=== PATIENT | female | born 1995 | race Two or more races ===

== ENCOUNTER 2017-06-08 18:33 | Emergency (ER) | payer SELFPAY ==
[2017-06-08 18:42] VITALS: RESP 20
--- NOTE | 2017-06-08 19:13 | C.PDOC ---
History Of Present Illness 21 year old female who presents to the ER with a complaint of abdominal pain and dysuria that began today, associated with vaginal spotting that began yesterday. Patient states she is 8 weeks and LMP was April 10; denies fever, chills, nausea, or vomiting. Chief Complaint (Nursing): Abdominal Pain History Per: Patient History/Exam Limitations: no limitations Onset/Duration Of Symptoms: Hrs Current Symptoms Are (Timing): Still Present Location Of Pain/Discomfort: RLQ, LLQ Radiation Of Pain To:: None Quality Of Discomfort: Unable To Describe Associated Symptoms: Urinary Symptoms. denies: Fever, Chills, Nausea, Vomiting Exacerbating Factors: None Alleviating Factors: None Recent travel outside of the [place]: No Past Medical History Reviewed: Historical Data, Nursing Documentation, Vital Signs Vital Signs: Last Vital Signs Temp 98.2 F 06/08/17 21:30 Pulse 77 06/08/17 21:30 Resp 20 06/08/17 21:30 BP 92/62 L 06/08/17 21:30 Pulse Ox 99 06/09/17 05:05 - Medical History PMH: No Chronic Diseases Surgical History: No Surg Hx Family History: States: Unknown Family Hx - Social History Hx Tobacco Use: No Hx Alcohol Use: Yes Hx Substance Use: No - Immunization History Hx Tetanus Toxoid Vaccination: No Hx Influenza Vaccination: Yes (2016) Hx Pneumococcal Vaccination: No Review Of Systems Constitutional: Negative for: Fever, Chills Gastrointestinal: Positive for: Abdominal Pain. Negative for: Nausea, Vomiting Genitourinary: Positive for: Dysuria Physical Exam - Physical Exam Appears: Non-toxic, No Acute Distress Skin: Normal Color, Warm, Dry Head: Atraumatic, Normacephalic Oral Mucosa: Moist Chest: Symmetrical, No Tenderness Cardiovascular: Rhythm Regular, No Murmur Respiratory: Normal Breath Sounds, No Rales, No Rhonchi, No Wheezing Gastrointestinal/Abdominal: Soft, Tenderness (Bilateral lower quadrants and hypogastric ) Pelvic: Normal External Exam, No Vaginal Bleeding, Other (Cervix closed, tender to palpation) Neurological/Psych: Oriented x3, Normal Speech, Normal Cognition ED Course And Treatment - Laboratory Results Result Diagrams: 06/08/17 19:20 06/08/17 19:20 O2 Sat by Pulse Oximetry: 99 (Room air) Pulse Ox Interpretation: Normal - CT Scan/US Abdominal US Other Rad Studies (CT/US): Read By Radiologist, Radiology Report Reviewed CT/US Interpretation: EXAM: US Abdomen Limited, Appendix. CLINICAL HISTORY: 21 years old, female; Pain; Abdominal pain; Tenderness; Right lower quadrant ( rlq); ;. Additional info: Rt. Lower abd pain/ tenderness. TECHNIQUE: Real-time ultrasound of the right lower quadrant with image documentation. EXAM DATE/TIME: Exam ordered 06/08/2017 7:03 PM. COMPARISON: No relevant prior studies available. FINDINGS: Appendix: The appendix is not seen as a separate structure. Free fluid: No free fluid. IMPRESSION: The appendix is not seen as a separate structure. No fluid collections noted Transvaginal US Other Rad Studies (CT/US): Read By Radiologist, Radiology Report Reviewed CT/US Interpretation: EXAM: US , Transvaginal. CLINICAL HISTORY: 21 years old, female; Signs and symptoms; Lmp or gestational age (in weeks): [id number]; Other: Vaginal bleed; . TECHNIQUE: Real-time transvaginal obstetrical ultrasound of the maternal pelvis and a first trimester . with image documentation. Transvaginal imaging was used for better evaluation of the fetus and. adnexa. COMPARISON: No relevant prior studies available. FINDINGS: Gestation: The gestational sac measures 2.4 x 1 x 2.4 cm for a mean sac diameter of 1.9 cm for a. menstrual age of 6 weeks and 3 days. There is a pole the crown-rump length measurements. 0.62 cm for a menstrual age of 6 weeks and 3 days Cardiac activity is noted at a rate of 128 beats. per minute. There is a yolk sac. Placenta/amniotic fluid: Cannot be adequately evaluated due to the early gestational age. Uterus/cervix: Endovaginal examination was performed for better delineation of the uterus and. adnexa On transvaginal exam the uterus measures 10.6 x 5.7 x 6.6 cm. The cervix measures. approximately 3.1 cm in length. No myometrial mass. Ovaries: The right ovary measures 4.2 x 1.6 x 2.1 cm and contains subcentimeter follicles. Blood. flow seen in the right ovary on color Doppler examination. The left ovary measures 3.3 x 1.6 x 2.6. cm. Subcentimeter follicles are present. Blood flow is present within the left ovary color Doppler. examination. Free fluid: No free fluid. IMPRESSION: 1. Single live intrauterine with an estimated menstrual age of 6 weeks and 3 days plus or -. 0 weeks and 3 days. Expected date of confinement 01/29/2018. Transabd US Other Rad Studies (CT/US): Read By Radiologist, Radiology Report Reviewed CT/US Interpretation: EXAM: US First Trimester, Transabdominal. CLINICAL HISTORY: 21 years old, female; Signs and symptoms; Lmp or gestational age (in weeks): [id number]; Other: Vaginal bleed; . TECHNIQUE: Real- time transabdominal obstetrical ultrasound of the maternal pelvis and a first trimester. with image documentation. EXAM DATE/TIME: Exam ordered 7:03 PM. COMPARISON: No relevant prior studies available. FINDINGS: Gestation: The uterus measures 10.2 x 6.2 x 7.2 cm. There is an intrauterine gestational sac. Placenta/amniotic fluid: Cannot be adequately evaluated due to the early gestational age. Uterus/cervix: The cervix measures 2.69 cm. No myometrial mass. Ovaries: Unremarkable. No mass. Free fluid: No free fluid. IMPRESSION: 1. Single intrauterine gestational sac. Please see the report for the transvaginal ultrasound which was. done immediately after the transabdominal study for a complete description of findings. Progress Note: Blood work, urinalysis, abdominal US, and transvaginal US ordered. Disposition Counseled Patient/Family Regarding: Diagnosis - Disposition Referrals: [facility] [Outside] Disposition: HOME/ ROUTINE Disposition Time: 21:15 Condition: STABLE Prescriptions: Acetaminophen [Tylenol 325mg tab] 650 mg PO Q4 #20 tab Instructions: Abdominal Pain in (ED) - POA Present On Arrival: None - Clinical Impression Clinical Impression: Abdominal pain during - Scribe Statement The provider has reviewed the documentation as recorded by the Scribe Rno Patel All medical record entries made by the Scribe were at my direction and personally dictated by me. I have reviewed the chart and agree that the record accurately reflects my personal performance of the history, physical exam, medical decision making, and the department course for this patient. I have also personally directed, reviewed, and agree with the discharge instructions and disposition.
[2017-06-08 19:24] LABS: BASO % 0.5 % (0.0-2.0); EOS # 0.1 K/uL (0.0-0.7); EOS % 1.2 % (0.0-4.0); HEMOGLOBIN 12.1 g/dL (11.0-16.0); LYMPH % 38.4 % (20.0-40.0); MEAN CELL VOLUME 89.8 fL (81.0-99.0); MEAN CORPUSCULAR HEMOGLOBIN 29.7 pg (27.0-31.0); MEAN CORPUSCULAR HGB CONC 33.1 g/dL (33.0-37.0); MEAN PLATELET VOLUME 8.2 fL (7.2-11.7); MONO # 0.6 K/uL (0.0-0.8); MONO % 7.7 % (0.0-10.0); NEUT % 52.2 % (50.0-75.0); NRBC % 0.1 % (0.0-2.0); RBC 4.06 Mil/uL (3.80-5.20); RED CELL DISTRIBUTION WIDTH 13.2 % (11.5-14.5); WHITE BLOOD COUNT 7.7 K/uL (4.8-10.8)
[2017-06-08 19:28] LABS: SQUAMOUS EPITHIAL 2 /hpf (0-5); URINE BILIRUBIN NEGATIVE (NEGATIVE); URINE BLOOD NEGATIVE (NEGATIVE); URINE CLARITY Clear (Clear); URINE COLOR Colorless (YELLOW); URINE GLUCOSE (UA) NORMAL (Normal); URINE LEUKOCYTE ESTERASE NEG Leu/uL (Negative); URINE NITRATE NEGATIVE (NEGATIVE); URINE PROTEIN NEGATIVE (NEGATIVE); URINE UROBILINOGEN NORMAL mg/dL (0.2-1.0)
[2017-06-08 19:32] LABS: ALBUMIN 3.6 g/dL (3.5-5.0)
[2017-06-08 19:35] LABS: ALB/GLOB RATIO 1.3 (1.0-2.1); ALT/SGPT 28 U/L (9-52); AST/SGOT 19 U/L (14-36); BLOOD UREA NITROGEN 7 mg/dL (7-17); CALCIUM 8.4 mg/dl (8.6-10.4); GFR AFRICAN-AMERICAN > 60; GFR NON-AFRICAN AMERICAN > 60; INR 1.2; PROTHROMBIN TIME 13.1 SECONDS (9.7-12.2)
[2017-06-08] MEDS ORDERED: Potassium Chloride 20 mEq/15 ml LIQ UD PO STA (20:47)
[2017-06-08] MEDS ORDERED: Potassium Chloride 20 mEq/15 ml LIQ UD ONE (21:04)
[2017-06-08 21:30] VITALS: TEMP 98.2
[2017-06-08 21:32] VITALS: BP 92/62; PULSE 77
[2017-06-09 05:06] VITALS: O2SAT 99
--- NOTE | 2017-06-09 16:50 | US ---
Right lower quadrant ultrasound dated 06/08/2017. History: Right lower quadrant abdominal pain/tenderness. Targeted sonographic evaluation right lower quadrant performed. Findings: The appendix is not seen with certainty on this study and therefore the possibility of an acute appendicitis cannot be excluded. Clinical correlation recommended. There are no obvious large right lower quadrant masses, collections or free fluid seen. Impression: The appendix is not visualized and therefore the possibility of an acute appendicitis cannot be excluded. No obvious fluid collections.
--- NOTE | 2017-06-09 16:55 | US ---
Pelvic ultrasound dated 06/08/2017. History: Vaginal bleeding in a patient. Transabdominal/transvaginal sonographic evaluation of the pelvis performed. Findings: The uterus is anteverted measuring approximately 10.6 x 5.7 x 6.6 cm. Cervix is closed measuring approximately 2.89 cm. . There is a single living intrauterine gestation with measurements as follows: Gestational sac: MS D = 1.94 cm = 6 weeks 3 days Yolk sac: 0.26 cm pole: 0.61 cm = 6 weeks 3 days Heart motion: 128 BPM Average ultrasound age: 6 weeks 3 days +/-0 weeks 3 days FAYE based on average ultrasound age = 0301/29/2018 No gross free fluid seen in the cul sac. The right ovary measures approximately 4.2 x 1.6 x 2.9 cm and exhibits arterial flow. Left ovary measures approximately 3.3 x 1.6 x 2.6 cm and also exhibits arterial flow. Impression: Early living intrauterine gestation at approximately 6 weeks 3 days +/-0 weeks 3 days. Cardiac activity documented as above. Preliminary report provided by overnight radiology service
== END 2017-06-08 21:35 | disposition home or self-care (01) ==
LOC: C.ER 18:33
DX: O26.891 Other specified pregnancy related conditions, first trimester (principal); R10.31 Right lower quadrant pain; Z3A.08 8 weeks gestation of pregnancy

== ENCOUNTER 2017-08-17 07:13 | Emergency (ER) | payer OTHER ==
[2017-08-17 07:18] VITALS: BMI 17.9
[2017-08-17 07:20] VITALS: BP 117/77; PULSE 87; RESP 18; TEMP 98.1; O2SAT 100
[2017-08-17] MEDS ORDERED: Lidocaine 1% Inj (20ml) INFIL STA (07:36)
[2017-08-17] MEDS ORDERED: Bacitracin 500 Units/gm Oint Foilpak UD TOP ONE (07:36)
[2017-08-17] MEDS ORDERED: Lidocaine 1% Inj (20ml) ONE (07:56)
[2017-08-17] MEDS ORDERED: Bacitracin 500 Units/gm Oint Foilpak UD ONE (08:02)
--- NOTE | 2017-08-17 08:17 | C.PDOC ---
History Of Present Illness 21 year old female presents to Emergency Department for evaluation laceration to the left wrist. Patient states that she was washing dishes last night and accidentally cut her left wrist with a knife in the sink. Notes that wound was cleaned and covered last night. Otherwise, patient denies change in sensation, or any other associated symptoms at this time. Denies self inflicted injury. Patient is up to date with Tetanus vaccination. Time Seen by Provider: 08/17/17 07:27 Chief Complaint (Nursing): Abnormal Skin Integrity History Per: Patient History/Exam Limitations: no limitations Onset/Duration Of Symptoms: Days (1) Current Symptoms Are (Timing): Still Present Location Of Injury: Left: Wrist Quality Of Symptoms: Painful. denies: Itching, Swollen Recent travel outside of the [place]: No Additional History Per: Patient Past Medical History Reviewed: Historical Data, Nursing Documentation, Vital Signs Vital Signs: Last Vital Signs Temp 98.1 F 08/17/17 07:19 Pulse 87 08/17/17 07:19 Resp 18 08/17/17 07:19 BP 117/77 08/17/17 07:19 Pulse Ox 100 08/17/17 08:41 - Medical History PMH: Anemia Family History: States: Unknown Family Hx - Social History Hx Tobacco Use: No Hx Alcohol Use: Yes Hx Substance Use: No - Immunization History Hx Tetanus Toxoid Vaccination: No Hx Influenza Vaccination: Yes (2016) Hx Pneumococcal Vaccination: No Review Of Systems Except As Marked, All Systems Reviewed And Found Negative. Constitutional: Negative for: Fever, Chills Skin: Positive for: Other (laceration to left wrist) Neurological: Negative for: Weakness, Numbness Physical Exam - Physical Exam Appears: Non-toxic, No Acute Distress Skin: Warm, Dry, Other (4cm of superficial linear laceration to volar aspect of left wrist) Head: Atraumatic, Normacephalic Eye(s): bilateral: Normal Inspection, EOMI Nose: Normal Oral Mucosa: Moist Neck: Normal ROM Chest: Symmetrical Extremity: Normal ROM (FROM of the left wrist), No Tenderness, Capillary Refill (less than 2 seconds), No Deformity, No Swelling Pulses: Left Radial: Normal Neurological/Psych: Oriented x3, Normal Speech, Normal Motor, Normal Sensation Gait: Steady ED Course And Treatment O2 Sat by Pulse Oximetry: 100 (on RA) Pulse Ox Interpretation: Normal Laceration - Laceration Repair left wrist Wound Length (In cm): 4 Description Of Wound: Linear Wound Cleansed With: Sterile Saline Anesthesia: Lidocaine 1% Wound Examination: Irrigated With Saline, No FB With Wound Exploration, No Tendon Injury With Wound Exploration Wound Closure: Suture Suture Technique And Material Used: Interrupted (4), Nylon (4-0) Wound Complexity: Simple Medical Decision Making Medical Decision Making: Patient with wrist laceration. Wound cleansed and irrigated with NS. Laceration repair performed by GHADA Alfonso. Patient tolerated well. Bacitracin and dressing applied by RN. Patient given verbal and written instructions on wound care and to return for suture removal. Disposition Counseled Patient/Family Regarding: Diagnosis, Need For Followup, Rx Given - Disposition Disposition: HOME/ ROUTINE Disposition Time: 08:14 Condition: STABLE Additional Instructions: Keep area clean and dry. Remove the dressing in 24 hours. May wash gently with soap and water, do not use alcohol or iodine solution. Change dressing 1-2 times daily. Return to ER if fever occurs, redness or swelling around wound, pus in the wound. 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 - Scribe Statement The provider has reviewed the documentation as recorded by the Julia Snyder All medical record entries made by the Magalieibkathy were at my direction and personally dictated by me. I have reviewed the chart and agree that the record accurately reflects my personal performance of the history, physical exam, medical decision making, and the department course for this patient. I have also personally directed, reviewed, and agree with the discharge instructions and disposition.
== END 2017-08-17 08:20 | disposition home or self-care (01) ==
LOC: C.ER 07:13
DX: S61.512A Laceration without foreign body of left wrist, initial encounter (principal); W26.0XXA Contact with knife, initial encounter; Y93.G1 Activity, food preparation and clean up